=== PATIENT | male | born 1985 | race Caucasian/White ===

== ENCOUNTER → 2016-12-14 | Outpatient (CLI) | payer OTHER ==
[~2016-12-14] MED LIST: CLON1TAB3 PO; GABA-112 PO; LITH1TAB10 PO
--- NOTE | 2016-12-15 05:54 | PAP/PSG TECHNICIAN REPORT ---
[facility] Technology Project Manager Polysomnogram Report Study name: None Report date: 12/15/2016 Study date: 12/14/2016 Referring Physician: Rivka Guevara M.D. Name: DEBORAH POLLARD Interpreting Physician: Shiela Guevara M.D. Date of : 1985 Technology Project Manager: LAWANDA Lomeli. Sex: Male Age: 31 StudyType: PSG Weight: 158 lbs Height: 31 years, Height 5' 9" Neck Circum:15inches BMI: 23.33 Medications: Neurontin 300mg, [place] Carbonate ER 450mg, Zyprexa 5mg Patient History Study started on room air with no ETCO2 monitoring in room #6. 31 yr old male here tonight for a possible split psg. He has a family history of NEVILLE. He snores and has witnessed apnea. He has a history of SO insomnia. He never feels rested. He did not have a sleeping pill with him tonight but he stayed up all last night playing video games and was up all day today so that he would be able to fall asleep tonight. Neck circ=15inches. ESS=3/24. Parameters Monitored NPSG: E1-M2, E2-M1, Fp1-M2, Fp2-M1, F3-M2, F4-M2, F4-M1, C3-M2, C4-M2, C4-M1, O1-M2, O2-M2, O2-M1, T3-M2, T4-M1, P3-M2, P4-M1, CHIN1, CHIN2, HR, EKG, Legs, PFLOW, SNOR, FLOW, CFLOW, Tidal Volume, THOR, ABDO, SpO2, PLTH, CPRESS, ETCO2 Wave, ETCO2, pH Sleep Architecture Sleep Stages Time at Lights Off 10:27:41 PM STAGES Time (min.) TST (%) Time at Lights On 5:31:41 AM Wake 58.5 -- Total Recording Time (TRT) 423.50 min. N1 15.5 4 Total Sleep Period (TSP) 381.0 min. N2 219.0 60 Total Sleep Time (TST) 365.0min. N3 85.0 23 Awake Time 58.5 min. REM 45.5 12 Wake after Sleep Onset 16.0 min. Sleep Efficiency (SE) 86 % Sleep Onset Latency (NEELAM) 43.0 min. Number of Stage 1 Shifts None Awakenings 12 Stage Changes 73 Number of REM periods 8 REM 45.5 12 REM Latency 70.0 min. NREM 319.5 88 Body Position Analysis Supine Right Left Side Prone Vertical Total Sleep Time (min.) 343.9 78.0 0.0 78.00 0.0 0.0 Total Sleep Time (%) 79% 21% 0% 21 0% N/A% Total Sleep Time REM (min.) 45.5 0.0 0.0 None 0.0 0.0 Total Sleep Time NREM (min.) 241.5 78.0 0.0 None 0.0 0.0 Intermittent Wake (min.) 56.9 1.6 0.0 None 0.0 0.0 Total Sleep Period (%) 80% None None None None None Arousals Myoclonus (PLM) * Events Count Index Events Count Index Spontaneous 19 3 Events Awake (PLMW) 44 45.1 Respiratory 1 0.2 Events Asleep w/ Arousal (PLMA) 4 0.7 PLM 4 1 Events Asleep w/o Arousal (PLMS) 30 4.9 Snoring 34 6 Total Asleep 34 5.6 Total 58 10 Total 78 11 Respiratory Analysis * CA OA MA CH H RERA Total Count 0 1 0 0 1 0 2 Index 0.0 0.2 0.0 0 0.2 0 0.3 Mean Duration 0.0 17.0 0.0 0.00 11.7 0.0 14.4 Longest Duration 0.0 17.0 0.0 0.00 0.0 0.0 17.0 Respiratory Event Summary Total Supine ~Supine Right Left Prone REM NREM Apneas Count 1 1 0 0 N/A N/A 0 1 Index 0.2 0 0 0.0 N/A N/A 0 0 Hypopneas (4% Desat) Count 1 1 0 0 N/A N/A 1 0 Index 0.2 0.2 0 0.0 N/A N/A 1.3 0.0 Apneas & All Hypopneas Count 2 2 0 0 N/A N/A 1 1 Index 0.3 0 0 0 N/A N/A 1.3 0.2 Respiratory Events (Physician Practice Administrator+All Hyp+RERA) Count 2 2 0 0 N/A N/A 1 1 Index 0.3 0 0 0.0 N/A N/A 1.3 0.2 Respiratory Related Arousal Count 1 2 0 0 N/A N/A 0 1 Index 0.2 0 0 0 N/A N/A 0 0 Snoring Analysis Supine Right Left Prone REM NREM Total Snore duration 20.8 min Snores count 887 34 N/A N/A 12 909 921 Snore mean duration 1.4 Sec Snores index 185 26 N/A N/A 15.8 170.7 151.4 TST with snoring (%) 5.7% Desaturation Event Summary: Minimum %SpO2 Event Count Mean/Min/Max Duration(sec.) Desaturation Index % Time In Bed > 90 3 19.3 / 15.0 / 28.0 0.6 83.1 86 - 90 1 15.0 / 15.0 / 15.0 1.0 15.0 81 - 85 0 N/A 0.0 1.9 76 - 80 0 N/A 0.0 0.0 71 - 75 0 N/A 0.0 0.0 66 - 70 0 N/A 0.0 0.0 61 - 65 0 N/A 0.0 0.0 56 - 60 0 N/A 0.0 0.0 51 - 55 0 N/A 0.0 0.0 < 50 0 N/A 0.0 0.0 Total REM NREM Awake <50% 0.0 min. 0.0 min. 0.0 min. 0.0 min. 51 - 60% 0.0 min. 0.0 min. 0.0 min. 0.0 min. 61 - 70% 0.0 min. 0.0 min. 0.0 min. 0.0 min. 71 - 80% 0.0 min. 0.0 min. 0.0 min. 0.0 min. 81 - 90% 64.9 min. 8.0 min. 38.6 min. 18.2 min. 91 - 100% 319.0 min. 35.8 min. 246.9 min. 36.3 min. Average 92 92 92 91 Minimum SpO2 81 88 81 82 Desaturation Event Index 0.4 1.3 0.2 1.0 # Desat. Events below 89% 1 1 N/A N/A Time(%) with Saturation below 89% 5.4 0.1 4.0 1.3 Time(min.) with Saturation below 89% 20.7 0.3 15.3 5.1 Time (mins) REM (mins) NREM (mins) % of TST SpO2 Below 90% 1 1 NN/A 4.8 SpO2 Below 88% 0 0 0 4 Heart Rate Analysis Min (bpm) Max (bpm) Average (bpm) Awake 68 127 88 NREM 62 127 82 REM 59 93 77 Overall 59 127 81 Supplemental O2 Values Minimum O2 level: None Value Start Time End Time Technology Project Manager Comments Mr. Pollard slept in the right and supine positions. No cardiac arrhythmia noted. Some limb movements noted. No bruxism noted. Snoring was noted and scored as a 3 on a scale of 1 through 5. (0=no snoring, 5=snoring loud enough to be heard through a closed door or down the jose[address] way) He did not use the restroom during the night. He stated that he slept well. The final report will be interpreted and signed by a sleep physician. The completed physician report will then be placed in the patient medical record. Therapy (cm H2O) 0 TIB (min.) 423.5 TST (min.) 365.0 Sleep Onset (min.) 43.0 REM Onset From Sleep (min.) 70.0 Sleep Efficiency % 86 Wakefulness (%) 14 Wakefulness (min.) 58.5 NREM 1 (%) 4 NREM 1 (min.) 15.5 NREM 2 (%) 60 NREM 2 (min.) 219.0 NREM 3 (%) 23 NREM 3 (min.) 85.0 REM (%) 12 REM (min.) 45.5 # Arousals 58 Arousal Index 10 # Snore 921 Snore Index 151.4 AHI 0.3 AHI Supine 0 AHI Non-Supine 0 NREM AHI 0.2 REM AHI 1.3 RDI 0.3 # Obstructive Apnea 1 # Central Apnea 0 # Mixed Apnea 0 # Hypopneas 1 RERAs 0 Total Respiratory Events 2 Time Below SpO2 89% (min.) 15.6 Mean NREM SpO2 (%) 92 Mean REM SpO2 (%) 92 Mean Sleep SpO2 (%) 92 Min NREM SpO2 (%) 81 Min REM SpO2 (%) 88 Position Supine (min.) 343.9 Position Non-supine (min.) 78.0 LM Index Sleep 5.6 LM Index NREM 3.9 LM Index REM 17.1 Mean Heart Rate (bpm) 81 Min Heart Rate (bpm) 59
--- NOTE | 2016-12-21 13:30 | POLYSOMNOGRAPH REPORT ---
REFERRING PERSON: Dr. Dimas Guevara. BUS OPERATOR: Stacy Robles. Mr. Spicer is a 31-year-old male who presents for a possible split night sleep study. He has a history of snoring and witnessed apneas. He has a history of sleep onset and insomnia. He never feels rested. He states that he was not given a sleeping pill prior to tonight's test, but he stayed up all last night playing video games and was up all day today so that he would be able to fall asleep tonight. [place] sleepiness scale score on the evening of this study is 3. BMI is 23.33. Following the technical and digital specifications of the [place] [employer] (AASM) a standard diagnostic polysomnogram was performed monitoring EEG, EOG, EMG (chin and leg deviations), oxygen saturation, body position, digital video, respiratory effort and airflow. The sleep Stage and event scoring was based on the AASM Manual for the Scoring of Sleep and Associated Events 2007 edition. Apneas are defined as a drop in the peak thermal sensor excursion by >90% of baseline for at least 10 seconds. Hypopneas were scored using the 4% oxygen desaturation rule (4A-Medicare) and a decrease in the nasal pressure excursions by >30% of baseline for at least 10 seconds. Respiratory effort-related arousal (RERA's) is defined as a sequence of breaths lasting at least 10 seconds characterized by increasing respiratory effort or flattening of the nasal pressure waveform leading to an arousal from sleep when the sequence of breaths does not meet criteria for an apnea or hypopnea. Apnea Hypopnea index (AHI) is defined as the number of apneas and hypopneas occurring in an hour of sleep. Respiratory disturbance index (RDI) is defined as the number of apneas, hypopneas, and RERA's occurring in an hour of sleep. Mr. Spicer's total sleep period time was 381 minutes. Total sleep time was 365 minutes. Sleep efficiency was 86%. Latency to sleep onset was 43 minutes with wake after sleep onset of 16 minutes. Total non-REM sleep time was 319.5 minutes. He spent 4% of that time in N1 sleep, 60% in N2 sleep and 23% in N3 sleep. REM latency was 70 minutes. Total REM sleep time was 45.5 minutes or 12% of total sleep time. There were 58 cortical arousals from sleep. Twenty-four of these arousals were due to snoring, 4 were due to periodic limb movements of sleep and 1 was due to a respiratory event. The remaining 19 were spontaneous. There were 34 periodic limb movements noted. Limb movement index was 5.6 with an arousal index of 0.7. On the study, Mr. Spicer had no central, 1 obstructive, and no mixed apneas. There was only 1 hypopnea. Apnea-hypopnea index was 0.3. This is normal. 921 snoring events were recorded. Total sleep time with snoring was 5.7%. Mean saturation was 92% with desaturations to 81%. Saturations were less than 89% for 20.7 minutes of recorded time. These desaturations appeared to be artifactual and could be confirmed with NPO. There was no cardiac ectopy noted on this study. Heart rates ranged from a low of 59 beats per minute to a high of 127 beats per minute during sleep. IMPRESSION AND PLAN: Mr. Spicer is a 31-year-old male without evidence of sleep apnea, bruxism, parasomnia or clinically significant periodic limb movements of sleep on this test. 20 minutes of nocturnal hypoxemia was noted on this study; however, this all appears to be artifactual. An NPO can be performed on room air to ensure he does not in fact have nocturnal hypoxemia.
== END | disposition home or self-care (01) ==
LOC: C.NEUR 21:00
PROVIDERS: ATTEND Family Medicine
DX: G47.10 Hypersomnia, unspecified (principal); R06.81 Apnea, not elsewhere classified; R06.83 Snoring

== ENCOUNTER 2017-08-22 15:37 | Emergency (ER) | payer OTHER ==
[~2017-08-22] VITALS: Ht 177.8 cm; Wt 63.0 kg
[2017-08-22 15:58] VITALS: TEMP 37; Ht 177.8 cm; Wt 63.0 kg
[2017-08-22] MEDS ORDERED: IBUPROFEN 600 MG TAB PO STA (16:18)
--- NOTE | 2017-08-22 16:31 | EMERGENCY ROOM VISIT NOTE ---
ED Visit Note First contact with patient: 16:06 CHIEF COMPLAINT: Left Shoulder pain HISTORY OF PRESENT ILLNESS: This 32-year-old male patient presents to the emergency department, ambulatory, with a female friend, complaining of pain in the left shoulder for approximately 2-3 weeks. 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 He states he has been having intermittent pain in the left shoulder, making it difficult for him to hold anything heavy. He believed he pulled a muscle, but was talking to his father today, and states he suspects it could be a rotator cuff injury. There is mild limitation of motion of the arm because of the pain. The pain is moderate, constant and increases with motion of the hand and arm. The patient states the pain is throbbing and 7/10 at its worst. The patient has taken nothing for relief of the pain. No previous significant previous shoulder disease or injury. No numbness or tingling. No neck or back pain. No chest pain or shortness of breath. No abdominal pain or nausea/vomiting. No cough. REVIEW OF SYSTEMS: A 6 system review of systems was performed with positives and pertinent negatives in the HPI. ALLERGIES: None MEDICATIONS: None PMH: Radius, chronic joint pain SOCIAL HISTORY: Lives locally with family. He denies drug, alcohol use. The patient states he does smoke one pack of cigarettes per day. PHYSICAL EXAM: Vital Signs: Reviewed nurse's notes, vital signs stable. GENERAL : This is a 32-year-old male, in no acute distress, but appears to be in pain, well-developed, well-nourished laying his left arm in a flexed (at the elbow) and internally rotated position. MUSCULOSKELETAL: There is no deformity in the contour of the left shoulder and there are no wilbur deformities noted. There is no sulcus sign. There is tenderness over the anterior and posterior rotator cuff. The patient's range of motion is limited due to pain and spasms. Supraspinatus strength 5/5. There is no clavicle tenderness. No tenderness of the humerus, elbow, wrist, or hand. Tailings Worker strength 5/5. Radial pulse 2+. NECK: No tenderness to palpation over the cervical spine. HEART: Regular rate and rhythm without murmurs gallops or rubs. LUNGS: Clear to auscultation bilaterally without wheezes, rales or rhonchi. No accessory muscle use. No retractions. NEURO: The patient is alert and oriented to person, place, and time. Normal sensation to light and sharp touch. Capillary refill less than 2 seconds. RADIOLOGY: X-Ray Left Shoulder: L SHOULDER MIN 2 VIEWS ROUTINE HISTORY: 32 years-old Male left shoulder pain acute left shoulder pain. COMPARISON: Chest radiograph 10/11/2015 TECHNIQUE: 3 views of the left shoulder FINDINGS: No acute fracture, dislocation or significant degenerative changes. No opaque foreign body. Imaged lung huddleston and soft tissues are unremarkable. IMPRESSION: No acute bony abnormality. The above report was generated using voice recognition software. It may contain grammatical, syntax or spelling errors. Electronically signed by: Joaquin Gauthier M.D. 08/22/2017 4:36 PM Dictated Date/Time: 08/22/2017 4:35 PM EMERGENCY DEPARTMENT COURSE: I examined the patient. An X-ray of the left shoulder was reviewed by myself and radiologist and shows No acute bony abnormality. The patient was given an arm sling for comfort and a dose of 600 mg ibuprofen. Discharge instructions were reviewed and patient was discharged home in good condition. I attest that I have personally reviewed the patient's current medication list. Patient was found to have normal blood pressure on screening and does not require follow-up. DIFFERENTIAL DIAGNOSIS: Contusion, sprain, strain, fracture, dislocation, arthritis, malignancy, and others DIAGNOSIS: Shoulder strain Problem List Medical Problems: (1) Acute anxiety Status: Resolved (2) Anxiety disorder Status: Chronic (3) Arthralgia Status: Resolved (4) Back pain Status: Resolved (5) Bilateral knee pain Status: Chronic (6) Bilateral knee pain Status: Resolved (7) Bipolar affective disorder Status: Resolved (8) Bipolar disorder Status: Chronic (9) Chest pain Status: Resolved (10) Depression Status: Chronic (11) Gastroesophageal reflux disease Status: Chronic (12) Homicidal thoughts Status: Resolved (13) Hypertension Nos Status: Chronic (14) Insomnia Status: Chronic (15) Marijuana dependence Status: Chronic (16) Mood disorder Status: Resolved (17) Mood swings Status: Chronic (18) Neuropathy Status: Chronic (19) Osteochondral defect Status: Chronic (20) Palpitations Status: Resolved (21) Solitary nodule of lung Status: Chronic Current/Historical Medications Scheduled Naproxen (Naprosyn), 500 MG PO BID Scheduled PRN Cyclobenzaprine Hcl (Flexeril), 5 MG PO TID PRN for Muscle Spasms Allergies Coded Allergies: No Known Allergies (Unverified , 08/02/16) Vital Signs Date Time Temp Pulse Resp B/P (MAP) Pulse Ox O2 Delivery O2 Flow Rate FiO2 08/22/17 15:58 37.0 97 20 129/78 99 Room Air Departure Information Impression Primary Impression: Left shoulder strain Dispostion Home / Self-Care Condition GOOD Prescriptions Naproxen (Naprosyn) 500 Mg Tab 500 MG PO BID, #60 TAB Prov: Sadia Alvarez PA-C 08/22/17 Cyclobenzaprine Hcl (FLEXERIL) 5 Mg Tab 5 MG PO TID Y for Muscle Spasms, #10 TAB PRN Prov: Sadia Alvarez PA-C 08/22/17 Referrals No Doctor, Assigned (PCP) Francisco Javier Miramontes M.D. Patient Instructions ED Sp[facility] Shoulder, [facility] Additional Instructions You have been treated in the Emergency Department for Shoulder Pain. For pain control, you can use the following [id number] medicines (if >12 yo): Naproxen 500mg twice daily. Take with food. Avoid using more than 1000mg in a 24 hour period. Do not use 2400mg per day for more than three consecutive days without physician direction. Prolonged inappropriate use can lead to stomach upset or ulcers. (AND/OR) Acetaminophen(Tylenol) may be used for fever or pain. Use 1000mg every six hours as needed. Avoid using more than 3000mg in a 24 hour period. If this is a recent injury (<24 hrs), ice can be applied to the area of pain for the first 3 days to help decrease pain and inflammation. You have been provided the number for an Orthopaedic Surgeon. You should call this number as soon as possible to establish a follow-up visit from today's Emergency Department visit. Wear the shoulder sling for comfort. Return to the Emergency Department if your current symptoms worsen despite treatment course outlined above, or if you develop any of the following symptoms : intractable pain despite aforementioned treatment course or new onset of numbness or tingling of the arm. Work Instructions Return To Work: 1 day Problem Qualifiers Primary Impression: Left shoulder strain Encounter type: initial encounter Qualified Codes: S46.912A - Strain of unspecified muscle, fascia and tendon at shoulder and upper arm level, left arm , initial encounter
--- NOTE | 2017-08-22 16:38 | DIAGNOSTIC IMAGING REPORT ---
L SHOULDER MIN 2 VIEWS ROUTINE HISTORY: 32 years-old Male left shoulder pain acute left shoulder pain. COMPARISON: Chest radiograph 10/11/2015 TECHNIQUE: 3 views of the left shoulder FINDINGS: No acute fracture, dislocation or significant degenerative changes. No opaque foreign body. Imaged lung huddleston and soft tissues are unremarkable. IMPRESSION: No acute bony abnormality. The above report was generated using voice recognition software. It may contain grammatical, syntax or spelling errors. Electronically signed by: Joaquin Gauthier M.D. 08/22/2017 4:36 PM Dictated Date/Time: 08/22/2017 4:35 PM
[2017-08-22] MEDS ORDERED: CYCL5TAB PO (16:47)
[2017-08-22] MEDS ORDERED: NAPR-1169 PO (16:50)
[2017-08-22 17:00] VITALS: BP 126/78; PULSE 73; O2SAT 98
== END 2017-08-22 17:02 | disposition home or self-care (01) ==
LOC: C.EDB 15:38 → C.EDD 17:02
DX: S46.912A Strain of unspecified muscle, fascia and tendon at shoulder and upper arm level, left arm, initial encounter (principal); X58.XXXA Exposure to other specified factors, initial encounter; G89.29 Other chronic pain; F41.9 Anxiety disorder, unspecified; F31.9 Bipolar disorder, unspecified; K21.9 Gastro-esophageal reflux disease without esophagitis; I10 Essential (primary) hypertension; G47.00 Insomnia, unspecified; F12.20 Cannabis dependence, uncomplicated; G62.9 Polyneuropathy, unspecified; M95.8 Other specified acquired deformities of musculoskeletal system; R91.1 Solitary pulmonary nodule

== ENCOUNTER 2018-07-13 04:49 | Emergency (ER) | payer SELFPAY ==
[~2018-07-13] VITALS: Ht 175.3 cm; Wt 61.1 kg
[2018-07-13 04:55] VITALS: Ht 175.3 cm; Wt 61.1 kg
[2018-07-13] MEDS ORDERED: LIDOCAINE/EPINEPHRINE 1% 20 ML VIAL INFIL ONE (05:15)
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
[2018-07-13 06:42] VITALS: BP 142/87; PULSE 100; TEMP 36.9; O2SAT 97
== END 2018-07-13 06:42 | disposition home or self-care (01) ==
LOC: C.EDB 04:49
DX: S51.812A Laceration without foreign body of left forearm, initial encounter (principal); W25.XXXA Contact with sharp glass, initial encounter; F17.200 Nicotine dependence, unspecified, uncomplicated; F12.90 Cannabis use, unspecified, uncomplicated

== ENCOUNTER 2019-07-29 21:27 | Inpatient (IN) ==
[2019-07-29] MEDS ORDERED: cefTRIAXone SODIUM 1,000 MG/50 ML BAG IV STA (22:53)
[2019-07-29 23:25] LABS: Basophils # (auto) 0.03 K/uL (0-0.2); Basophils % (auto) 0.3 %; Eosinophils # (auto) 0.07 K/uL (0-0.5); Eosinophils % (auto) 0.8 %; Hematocrit (blood only) 43.7 % (42-52); Immature Granulocytes # (auto) 0.01 K/uL (0.00-0.02); Immature Granulocytes % (auto) 0.1 %; Lymphocytes # (auto) 1.65 K/uL (1.2-3.4); Lymphocytes % (auto) 18.1 %; Mean Corpuscular Hgb Conc 36.6 g/dL (32-36); Mean Platelet Volume 10.9 fL (7.4-10.4); Monocytes # (auto) 0.58 K/uL (0.11-0.59); Monocytes % (auto) 6.3 %; Neutrophils % (auto) 74.4 %; Platelet Count 151 K/uL (130-400); RDW Coefficient of Variation 13.1 % (11.5-14.5); RDW Standard Deviation 44.1 fL (36.4-46.3); Red Blood Count 4.75 M/uL (4.7-6.1); White Blood Count 9.14 K/uL (4.8-10.8)
[2019-07-29] MEDS ORDERED: ACETAMINOPHEN 500 MG TAB PO STA (23:29)
[2019-07-29 23:43] LABS: BUN Creatinine Ratio 14.2 (10-20); Calcium 8.8 mg/dl (8.5-10.1); Creatinine Clr Calc Pharmacy 121.6 ml/min; Est GFR (African American) 138.2; Est GFR (Non-African American) 119.2; Potassium 3.5 mmol/L (3.5-5.1)
[2019-07-29 23:45] LABS: Albumin Globulin Ratio 1.1 (0.9-2); Bilirubin,Total 0.5 mg/dl (0.2-1); Globulin 3.5 gm/dl (2.5-4.0); Total Protein 7.5 gm/dl (6.4-8.2)
--- NOTE | 2019-07-30 04:50 | History and Physical Report ---
DATE OF ADMISSION: 07/29/2019 CHIEF COMPLAINT: Right leg infection. HISTORY OF PRESENT ILLNESS: A 34-year-old male with past medical history significant for bipolar disorder, depression, anxiety, ADHD. He says he was in the hospital multiple times as a child and was on many medications but did not work for him and he started smoking because that used to help with his anxiety and he is also using medical marijuana and the combination that takes care of all his anxiety and other psych issues. He is not taking any other medications. 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 He was treated for possible anaplasmosis in April and he came to the ER on July 27 because he noticed right inguinal lymph node which was tender, it started on last Sunday, came to the ER on Sunday and lab work was unremarkable. Imaging studies were done. There was no DVT with lymphangitis and ER physician prescribed Keflex and follows his PCP. If he does not improve with antibiotics, advised the may need a biopsy, but after going home, the next day, he noticed redness in his right calf and progressively started getting worse and has significant pain, and also from the calf there is a redline streak going up to his right groin region. The lymph node size decreased with his Keflex, but because of the new calf erythema and his pain in the calf, he came to the ER. He said he is also having sweating and fever at home. Denies any IV drug abuse. Denies any other problems, no headaches, no blurred vision, no sore throat. He has some cough, but smokes cigarettes half pack to 2 packs a day for many years. No chest pain, no shortness of breath, no nausea, no vomiting, no abdominal pain. Normal bowel and bladder movements. No hematuria, no dysuria, no melena or hematochezia. No swelling in the legs. Currently resting comfortably and hemodynamically stable. The patient was somewhat agitated, initially as he was in the ER for 5 hours and he says he wanted to smoke, he just the room went out of the hospital, smoked cigarettes and came back and after that he was pleasant.Has two cats at home but denies any cat scratching. ALLERGIES: NSAIDS. PAST MEDICAL HISTORY: As mentioned above. PAST SURGICAL HISTORY: Dental surgery, tonsillectomy. MEDICATIONS: Currently, none. FAMILY HISTORY: There is a history of cancer in the family. SOCIAL HISTORY: Lives with his girlfriend, smokes half pack to 2 packs for many years. Denies any alcohol use. Smokes marijuana. REVIEW OF SYMPTOMS: As per HPI. Rest of review of symptoms is negative. PHYSICAL EXAMINATION: GENERAL: The patient is of moderate build, not in acute distress. VITAL SIGNS: Temperature 37.5, pulse 84, respirations 16, blood pressure 124/66, oxygen 98% room air. HEENT: No pallor, no icterus. Pupils equal, round, reactive to light. NECK: No JVD, no neck masses, no carotid bruit. CARDIOVASCULAR: S1, S2 heard, regular rate and rhythm, no murmur, no gallop. RESPIRATORY SYSTEM: Normal AP diameter. No accessory muscle use. No wheezing, no crackles. ABDOMEN: Soft, bowel sounds present, nontender. No distention. CENTRAL NERVOUS SYSTEM: Cranial nerves II-XII grossly nonfocal. EXTREMITIES: Erythematic changes of his right calf and centrally some open skin and also steak of redness going from the calf region in the medial side of his leg into the groin.tender enlarged inguinal lymph node of right side. Ly LABORATORY DATA: WBC 9, hemoglobin 16, hematocrit 43.7, platelets 151. Sodium 137, potassium 3.5, chloride 102, bicarb 26, BUN 11, creatinine 0.7, serum glucose 98, lactate 0.7, calcium 8.8, total bilirubin 0.5, AST 20, ALT 27, alkaline phosphatase of 63. ASSESSMENT AND PLAN: This is a 34-year-old male who presents with right lower extremity infection, possible cellulitis. 1. Right lower extremity infection, erythematous changes to the calf and streak of redline going to the groin and tender lymphadenopathy in the groins, possible insect bite. The patient has 2 cats, but denies any cat scratch. Keflex improved his lymphadenopathy, but then calf erythema developed. We will empirically put him on vancomycin and Zosyn. Blood cultures were drawn in the ER which we will follow. We will also get a consult ID for further recommendations. 2. History of anxiety, bipolar, not taking any medications, only smokes cigarettes and also medical marijuana. 3. Deep venous thrombosis prophylaxis. We will place him on Lovenox. 4. Disposition: Admit to medical floor. Expect to discharge home and follow with his family doctor. Level 1 full code. MTDD
[2019-07-30] MEDS ORDERED: [UNRECOGNIZED DRUG - OTHER] PO SCH (04:57)
[2019-07-30] MEDS ORDERED: MoRPHine SULFATE 4 MG/ML 1 ML CARP\\VIAL IV PRN (04:57)
[2019-07-30] MEDS ORDERED: ONDANSETRON INJ 2 MG/ML 2 ML VIAL IV PRN (04:57)
[2019-07-30] MEDS ORDERED: VANCOMYCIN CONSULT ACTIVE PRN (04:57)
[2019-07-30] MEDS ORDERED: ACETAMINOPHEN 325 MG TAB PO PRN (04:57)
[2019-07-30] MEDS ORDERED: PIPERACILL/TAZOBAC CONSULT ACTIVE PRN (04:57)
--- NOTE | 2019-07-30 05:44 | Emergency Department Note ---
History of Present Illness General Chief complaint: Infection Stated complaint: SPIDER BITE Source: patient Mode of arrival: ambulatory Limitations: no limitations History of Present Illness Maximum Pain Intensity: 5 This patient is a 34-year-old male who presents to the emergency department complaining of an infection of his right leg. The patient states that he was seen here 2 days ago due to right-sided groin pain/swelling. He was discharged on Keflex. He states that he took a nap right after discharge and when he woke up he felt a burning sensation in the back of his right leg. He noticed some redness in that area. He states that since then, the red area has become very dark and painful. He has been taking Benadryl without improvement. He has been taking his Keflex as prescribed. He rates his overall discomfort a 5/10. He has been having fevers. He denies any nausea or vomiting. Home Medications Home Medications Medication Instructions Recorded Confirmed Type Medical Marijuanas 1 applic PO UD 07/27/19 07/29/19 History cephalexin [Keflex] 500 mg PO Q6H #56 cap 07/27/19 07/29/19 Rx Allergies Allergy/AdvReac Type Severity Reaction Status Date / Time NSAIDS (Non-Steroidal AdvReac Unknown Ulcers Verified 07/29/19 23:53 Anti-Inflamma Past Med/Surg History Medical History Mood disorder (Resolved) Bilateral knee pain (Resolved) Chest pain (Resolved) Arthralgia (Resolved) Back pain (Resolved) Bipolar affective disorder (Resolved) Palpitations (Resolved) Acute anxiety (Resolved) Social History Preferred Language: Mohawk Communication Ability: Effective Battery Filler Required: No Beliefs That Will Affect Care: None Current Living Situation: Significant Other Current Living Situation Comment: apartment Other Information That Helps Us Care for You: Yes (has child visitation this weekend) Feels Safe at Home: Yes Safety Concerns: Feels Safe At This Time Smoking Status: Current every day smoker Tobacco Type: cigarettes ; Do You Dip or Chew Tobacco: No ; Second Hand Exposure: No ; Tobacco Cessation Education Requested by Patient: No Hx Alcohol Use: Yes Alcohol type: beer Hx Substance Use: No Review of Systems A total of 10 systems reviewed and were otherwise negative Physical Exam Vital Signs Vital Signs - 24 hr 07/29/19 21:40 07/29/19 23:34 07/30/19 00:28 Temperature 38.6 C H 37.4 C 37.4 C Temperature Source Oral Oral Oral Sepsis Recent Fever Within 48 Hours Yes Sepsis Action Taken by Nursing No Action Required Pulse Rate 74 Pulse Rate [Right Finger] 93 H Respiratory Rate 18 16 Respiratory Effort / Characteristics Non-Labored Spontaneous Non-Labored Spontaneous Respiratory Depth Normal Normal Respiratory Pattern Regular Regular Blood Pressure 143/97 H Blood Pressure [Right Arm] 135/80 Blood Pressure Mean 112 Blood Pressure Mean [Right Arm] 98 Blood Pressure Position Lying Blood Pressure Position [Right Arm] Pulse Oximetry 100 97 Oxygen Delivery Method Room Air Room Air 07/30/19 01:41 Temperature 37.5 C Temperature Source Oral Sepsis Recent Fever Within 48 Hours Sepsis Action Taken by Nursing Pulse Rate Pulse Rate [Right Finger] 84 Respiratory Rate 16 Respiratory Effort / Characteristics Non-Labored Spontaneous Respiratory Depth Normal Respiratory Pattern Regular Blood Pressure Blood Pressure [Right Arm] 124/66 Blood Pressure Mean Blood Pressure Mean [Right Arm] 85 Blood Pressure Position Blood Pressure Position [Right Arm] Lying Pulse Oximetry 98 Oxygen Delivery Method Room Air VITALS: Vitals are noted on the nurse's note and reviewed by myself. Vital signs stable. GENERAL: This is a 34-year-old male, in no acute distress, nondiaphoretic, well- developed well-nourished. SKIN: There is an area of dark erythema to the posterior aspect of the right calf. There is lymphangitic streaking up the posterior and medial leg. There is right inguinal adenopathy with overlying erythema. EARS: External auditory canals clear, tympanic membranes pearly eddy without erythema or effusion bilaterally. EYES: Pupils equal round and reactive to light and accommodation. MOUTH: Mucous membranes moist. Tonsils are not enlarged. Pharynx without erythema or exudate. NECK: Supple without nuchal rigidity. HEART: Regular rate and rhythm without murmurs gallops or rubs. LUNGS: Clear to auscultation bilaterally without wheezes, rales or rhonchi. ABDOMEN: Soft, nontender to palpation. Right inguinal adenopathy. EXTREMITIES: No peripheral edema. NEURO: Patient was alert and oriented to person place and time. Course Consultations Consultation #1: Dr. Juan Mina hospitalist Administered Medications Discontinued Medications Acetaminophen (Tylenol) 1,000 mg PO NOW STA Stop: 07/29/19 23:30 Last Admin: 07/29/19 23:37 Dose: 1,000 mg Documented by: [id number] Ceftriaxone Sodium (Rocephin) 1,000 mg in 50 mls @ 100 mls/hr IV NOW STA Stop: 07/29/19 23:22 Last Infusion: 07/30/19 00:10 Dose: 0 mls/hr Documented by: [id number] Admin: 07/29/19 23:29 Dose: 100 mls/hr Documented by: [id number] Medical Decision Making Differential Diagnosis Differential diagnosis includes cellulitis, abscess, DVT, superficial thrombosis, contact dermatitis, among others. Home Medications Current Medication List: was personally reviewed by me Laboratory Data Attestation: I reviewed the patient's lab results. Result diagrams: 07/29/19 23:17 07/29/19 23:17 Lab Results 07/29/19 07/29/19 07/29/19 Range/Units 23:17 23:17 23:17 WBC 9.14 (4.8-10.8) K/uL RBC 4.75 (4.7-6.1) M/uL Hgb 16.0 (14.0-18.0) g/dL Hct 43.7 (42-52) % MCV 92.0 (80-100) fL MCH 33.7 (25-34) pg MCHC 36.6 H (32-36) g/dL RDW Std Deviation 44.1 (36.4-46.3) fL RDW Coeff of Danny 13.1 (11.5-14.5) % Plt Count 151 (130-400) K/uL MPV 10.9 H (7.4-10.4) fL Immature Gran % (Auto) 0.1 % Neut % (Auto) 74.4 % Lymph % (Auto) 18.1 % Stark % (Auto) 6.3 % Eos % (Auto) 0.8 % Baso % (Auto) 0.3 % Immature Gran # (Auto) 0.01 (0.00-0.02) K/uL Neut # (Auto) 6.80 H (1.4-6.5) K/uL Lymph # (Auto) 1.65 (1.2-3.4) K/uL Stark # (Auto) 0.58 (0.11-0.59) K/uL Eos # (Auto) 0.07 (0-0.5) K/uL Baso # (Auto) 0.03 (0-0.2) K/uL Sodium 137 (136-145) mmol/L Potassium 3.5 (3.5-5.1) mmol/L Chloride 102 (98-107) mmol/L Carbon Dioxide 26 (21-32) mmol/L Anion Gap 9.0 (3-11) BUN 11 (7-18) mg/dl Creatinine 0.77 (0.6-1.4) mg/dl Est Cr Clr Drug Dosing 121.6 ml/min Est GFR ( Amer) 138.2 Est GFR (Non-Af Amer) 119.2 BUN/Creatinine Ratio 14.2 (10-20) Glucose 98 (70-99) mg/dl Lactate 0.7 (0.4-2.0) mmol/L Calcium 8.8 (8.5-10.1) mg/dl Total Bilirubin 0.5 (0.2-1) mg/dl AST 20 (15-37) U/L ALT 27 (12-78) U/L Alkaline Phosphatase 63 (45-117) U/L Total Protein 7.5 (6.4-8.2) gm/dl Albumin 4.0 (3.4-5.0) gm/dl Globulin 3.5 (2.5-4.0) gm/dl Albumin/Globulin Ratio 1.1 (0.9-2) Blood Pressure Blood Pressure Findings: Elevated blood pressure Blood Pressure Disposition: further management by hospitalist MDM Narrative The patient is a 34-year-old male who presents today complaining of worsening infection of the right leg. Patient was seen here 2 days ago and had work-up for right inguinal adenopathy. At that time, he did not have any rash but has not developed what appears to be cellulitis of the posterior right leg. Patient has associated lymphangitis and lymphadenitis. He is febrile here but does not appear to be septic. Labs revealed no leukocytosis, anemia or concerning electrolyte abnormality. Lactic acid was not elevated. Blood cultures pending. Patient had a DVT study performed at his last visit which was negative. Patient was given a dose of Rocephin in the emergency department. Case was discussed with the [facility] hospitalist, who will evaluate the patient for further evaluation and care. Impression & Plan Cellulitis of leg, right Discharge Plan Visit Data *Final* Discharge Date/Time: 07/30/19 03:42 Chief Complaint: Infection Stated Complaint: SPIDER BITE ED Provider: Mike Carmona ED Midlevel Provider: Abby Trujillo Discharge Problem: Cellulitis of leg, right Patient Disposition: Admitted As Inpatient Discharge Instructions Interventions: ED Discharge Assessment Last Done: 07/30/19 03:42
[2019-07-30] MEDS ORDERED: VANCOMYCIN HCL 1,500 MG in SODIUM CHLORIDE 0.9% 500 ML IV ONE (06:15)
[2019-07-30] MEDS ORDERED: PIPERACILLIN/TAZOBACTAM 3.375 GM in DEXTROSE 5% 100 ML IV ONE (06:15)
[2019-07-30] MEDS ORDERED: Nursing to Pharmacy Communication ONE (06:47)
[2019-07-30] MEDS: ENOXAPARIN INJ 40 MG/0.4 ML SYR SQ SCH (07:52)
--- NOTE | 2019-07-30 09:07 | Pharmacy Report ---
Pharmacy Abx Dose Short Note - Date of Service July 30, 2019 - Assessment & Plan A/p Pt failed out pt Keflex. Is being started on vanco/zosyn for SST. Vanco 1500mg (24mg/kg) x1 then Vanco 1000mg ( 15mg/kg) q8 Trough ordered for 07/31 @1330, reflective of Css Will target a trough of 15-20mcg/mL until we have C/s's Zosyn EI Zosyn 3.375g IV q8 appropriate for clinical status and renal fxn Pharmacy will continue to follow and will adjust dose/frequency as necessary. Thank you.
--- NOTE | 2019-07-30 10:39 | Hospitalist Progress Note ---
Date of Service July 30, 2019 Subjective admitted patient on 07/30/19. Results & Data Vital Signs (Past 12 Hours) Vital Signs Temp Pulse Resp BP Pulse Ox 07/30/19 07:22 36.7 C 68 16 116/69 98 07/30/19 03:55 36.7 C 72 20 124/81 99 07/30/19 03:47 84 16 132/77 97 07/30/19 01:41 37.5 C 84 16 124/66 98 07/30/19 00:28 37.4 C 07/29/19 23:34 37.4 C 93 H 16 135/80 97
--- NOTE | 2019-07-30 10:54 | Infectious Disease Consult ---
Date of Consultation July 30, 2019 Assessment & Plan (1) Cellulitis of leg, right: continue abx, check bartonella and lyme. follow cultures. History of Present Illness Attending Physician: Estephania Manrique DO pt admitted with increased rle redness, pain. Was initially seen in ER on 07/27 for swollen lymph node with pain. was treated with keflex and d/c home. Initially felt better but on Sunday noted right posterior calf became red and warm. Came back to ER, admitted and placed on zosyn and vanco. wbc 9, ESR 12. Tmax in ER 38.6, currenlty afebrile. Doppler and ultrasouns on 07/27 negative. states he believes he was bit by a spider. no known bites, trauma to area. states he is feeling better. cultures 07/27 and 07/29 negative. CXR negative. procalcitonin negative. has 2 cats at home but denies bites or scratches. creat 0.7. no pain currently, denies drainage. Allergies Allergy/AdvReac Type Severity Reaction Status Date / Time NSAIDS (Non-Steroidal AdvReac Unknown Ulcers Verified 07/29/19 23:53 Anti-Inflamma Home Medications Home Medications Medication Instructions Recorded Confirmed Type Medical Marijuanas 1 applic PO UD 07/27/19 07/29/19 History cephalexin [Keflex] 500 mg PO Q6H #56 cap 07/27/19 07/29/19 Rx Patient History Medical History Mood disorder (Resolved) Bilateral knee pain (Resolved) Chest pain (Resolved) Arthralgia (Resolved) Back pain (Resolved) Bipolar affective disorder (Resolved) Palpitations (Resolved) Acute anxiety (Resolved) Social History Preferred Language: Mauritanian Communication Ability: Effective Commercial Insulator Required: No Beliefs That Will Affect Care: None Current Living Situation: Significant Other Current Living Situation Comment: apartment Other Information That Helps Us Care for You: Yes (has child visitation this weekend) Feels Safe at Home: Yes Safety Concerns: Feels Safe At This Time Smoking Status: Current every day smoker Tobacco Type: cigarettes ; Do You Dip or Chew Tobacco: No ; Second Hand Exposure: No ; Tobacco Cessation Education Requested by Patient: No Hx Alcohol Use: Yes Alcohol type: beer Hx Substance Use: No Review of Systems Review of Systems: All systems reviewed & are unremarkable except as noted in HPI & below Physical Exam Constitutional: WD/WN, vitals as above Eyes: PERRL, conjunctivae normal, anicteric sclerae ENMT: external ear and nose normal, oropharynx normal Neck: normal visual inspection Respiratory: normal respiratory effort, lungs clear to auscultation Cardiovascular: RRR, no murmur, no edema Gastrointestinal (Abdomen): normal bowel sounds, soft, nontender, no hepatosplenomegaly Musculoskeletal: no cyanosis or clubbing, extremities motor strength 5/5 Skin: no rashes, warm and dry right post calf with circular erythema, no warmth, non tender, no drainage right inguinal node - non tender. streaking noted. Psychiatric: A+Ox3, euthymic affect Results & Data Vital Signs (Past 12 Hours) Vital Signs Temp Pulse Resp BP Pulse Ox 07/30/19 07:22 36.7 C 68 16 116/69 98 07/30/19 03:55 36.7 C 72 20 124/81 99 07/30/19 03:47 84 16 132/77 97 07/30/19 01:41 37.5 C 84 16 124/66 98 07/30/19 00:28 37.4 C 07/29/19 23:34 37.4 C 93 H 16 135/80 97 PG Care Time/CCT Total # of Minutes Spent Total Time Spent with Patient: Total time spent is greater than 50% in coordination of care (as documented) at patient's floor/unit and/or counseling patient:
[2019-07-30] MEDS: PIPERACILLIN/TAZOBACTAM 3.375 GM in DEXTROSE 5% 100 ML IV SCH ×2 (12:02→20:14)
--- NOTE | 2019-07-30 12:06 | Hospitalist Progress Note ---
Date of Service July 30, 2019 Assessment & Plan (1) Cellulitis of leg, right: Cint Vanc/Zosyn pending clinical improvement after failure with Keflex. No sepsis. (2) Inguinal adenopathy: secondary to RLE cellulitis. Poss STI, however, no rash present, denies painful urination. Improved. (3) Bipolar 1 disorder: (4) DVT prophylaxis: Lovenox Full Code Dispo-to home in the next 1-2 days pending clinical improvement, negative blood cultures and transition to PO antibiotics. Estephania Manrique DO [facility] Hospitalist. Subjective 34 yo M presented with worsening redness and swelling in R calf area. Had previously presented to ER with acute R inguinal lymphadenopathy that was painful. He reports a couple of days later noting the R calf area. He is not any worse on IV abx overnight, but doesn't report feeling that much better yet. Denies fevers and chills but does report feeling very poorly three days ago including significant drenching sweats. Denies trauma to the leg. Feel he was bitten by a spider. Convinced it was a brown recluse. Review of Systems Review of Systems: All systems reviewed & are unremarkable except as noted in HPI & below Physical Exam Physical Exam: CONSTITUTIONAL: WNWD, vitals as above, generally well- appearing EYES: EOMI bilaterally, PERRL, normal conjunctivae ENT: MMM RESPIRATORY: clear to auscultation bilaterally, no crackles, rales or wheezes, normal respiratory effort CARDIOVASCULAR: regular rate and rhythm, S1 and 2 heard without murmurs, gallops or rubs, no JVD, no peripheral edema, no carotid bruits GASTROINTESTINAL: normal bowel sounds, soft, nontender, nondistended MUSCULOSKELETAL: strength 5/5 throughout, head is normocephalic and atraumatic SKIN: warm and dry, multiple tattoos. RLE erythematous area that is round and appears to have a central wound. There is no fluctuance and minimal pain to wound. Leg is NVI with no sensation loss. There is some erythema in the upper thigh area. and persistent but improved right inguinal LAD. No TTP of lymph node. NEUROLOGIC: CN 2-12 grossly intact, no gross focal deficits. PSYCHIATRIC: alert cooperative and oriented to person, place and time. Results & Data Vital Signs (Past 12 Hours) Vital Signs Temp Pulse Resp BP Pulse Ox 07/30/19 07:22 36.7 C 68 16 116/69 98 07/30/19 03:55 36.7 C 72 20 124/81 99 07/30/19 03:47 84 16 132/77 97 07/30/19 01:41 37.5 C 84 16 124/66 98 07/30/19 00:28 37.4 C Laboratory Results Short CBC 07/29/19 Range/Units 23:17 WBC 9.14 (4.8-10.8) K/uL Hgb 16.0 (14.0-18.0) g/dL Hct 43.7 (42-52) % Plt Count 151 (130-400) K/uL BMP 07/29/19 23:17 Sodium 137 Potassium 3.5 Chloride 102 Carbon Dioxide 26 BUN 11 Creatinine 0.77 Glucose 98 Calcium 8.8 Liver Function 07/29/19 Range/Units 23:17 Total Bilirubin 0.5 (0.2-1) mg/dl AST 20 (15-37) U/L ALT 27 (12-78) U/L Alkaline Phosphatase 63 (45-117) U/L Albumin 4.0 (3.4-5.0) gm/dl Medications Administered Current Inpatient Medications Acetaminophen (Tylenol) 650 mg PO Q4H PRN PRN Reason: pain/fever Stop: 08/29/19 04:56 Enoxaparin Sodium (Lovenox) 40 mg SQ Q24H [facility] Stop: 08/29/19 07:59 Last Admin: 07/30/19 07:52 Dose: 40 mg Documented by: Piperacillin Sod/Tazobactam (Sod 3.375 gm/ Dextrose) 115 mls @ 28.75 mls/hr IV Q8H [facility]; Protocol Stop: 08/09/19 11:59 Last Admin: 07/30/19 12:02 Dose: 28.8 mls/hr Documented by: Vancomycin HCl 1,000 mg/ (Sodium Chloride) 270 mls @ 125 mls/hr IV Q8H [facility] Stop: 08/09/19 13:59 Miscellaneous Information (Consult) 1 ea N/A UD PRN PRN Reason: Consult Stop: 08/29/19 04:56 Miscellaneous Information (Consult) 1 ea N/A UD PRN PRN Reason: Consult Stop: 08/29/19 04:56 Morphine Sulfate (Morphine Sulfate) 3 mg IV Q3H PRN PRN Reason: Pain Stop: 08/13/19 04:56 Ondansetron HCl (Zofran) 4 mg IV Q6H PRN PRN Reason: Nausea Stop: 08/29/19 04:56
[2019-07-30] MEDS: VANCOMYCIN HCL 1,000 MG in SODIUM CHLORIDE 0.9% 250 ML IV SCH ×2 (14:09→22:00)
[2019-07-31] MEDS: PIPERACILLIN/TAZOBACTAM 3.375 GM in DEXTROSE 5% 100 ML IV SCH (04:35)
[2019-07-31 05:36] LABS: Basophils # (auto) 0.06 K/uL (0-0.2); Basophils % (auto) 0.9 %; Eosinophils # (auto) 0.24 K/uL (0-0.5); Eosinophils % (auto) 3.5 %; Hematocrit (blood only) 43.5 % (42-52); Hemoglobin 15.5 g/dL (14.0-18.0); Immature Granulocytes # (auto) 0.01 K/uL (0.00-0.02); Immature Granulocytes % (auto) 0.1 %; Lymphocytes # (auto) 2.84 K/uL (1.2-3.4); Lymphocytes % (auto) 41.2 %; Mean Corpuscular Hgb Conc 35.6 g/dL (32-36); Mean Corpuscular Volume 93.3 fL (80-100); Mean Platelet Volume 11.3 fL (7.4-10.4); Monocytes # (auto) 0.66 K/uL (0.11-0.59); Monocytes % (auto) 9.6 %; Neutrophils # (auto) 3.08 K/uL (1.4-6.5); Neutrophils % (auto) 44.7 %; Platelet Count 188 K/uL (130-400); RDW Coefficient of Variation 13.4 % (11.5-14.5); RDW Standard Deviation 45.9 fL (36.4-46.3); Red Blood Count 4.66 M/uL (4.7-6.1); White Blood Count 6.89 K/uL (4.8-10.8)
[2019-07-31] MEDS: VANCOMYCIN HCL 1,000 MG in SODIUM CHLORIDE 0.9% 250 ML IV SCH (05:54)
[2019-07-31 06:00] LABS: BUN Creatinine Ratio 12.7 (10-20); Calcium 8.8 mg/dl (8.5-10.1); Creatinine Clr Calc Pharmacy 131.3 ml/min; Est GFR (African American) 142.1; Est GFR (Non-African American) 122.6; Magnesium 2.3 mg/dl (1.8-2.4); Potassium 3.9 mmol/L (3.5-5.1)
[2019-07-31] MEDS: ENOXAPARIN INJ 40 MG/0.4 ML SYR SQ SCH (07:52)
--- NOTE | 2019-07-31 12:08 | Discharge Summary ---
Date of Service July 31, 2019 Admission HPI Per Admitting Provider HISTORY OF PRESENT ILLNESS: A 34-year-old male with past medical history significant for bipolar disorder, depression, anxiety, ADHD. He says he was in the hospital multiple times as a child and was on many medications but did not work for him and he started smoking because that used to help with his anxiety and he is also using medical marijuana and the combination that takes care of all his anxiety and other psych issues. He is not taking any other medications. 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 He was treated for possible anaplasmosis in April and he came to the ER on July 27 because he noticed right inguinal lymph node which was tender, it started on last Sunday, came to the ER on Sunday and lab work was unremarkable. Imaging studies were done. There was no DVT with lymphangitis and ER physician prescribed Keflex and follows his PCP. If he does not improve with antibiotics, advised the may need a biopsy, but after going home, the next day, he noticed redness in his right calf and progressively started getting worse and has significant pain, and also from the calf there is a redline streak going up to his right groin region. The lymph node size decreased with his Keflex, but because of the new calf erythema and his pain in the calf, he came to the ER. He said he is also having sweating and fever at home. Denies any IV drug abuse. Denies any other problems, no headaches, no blurred vision, no sore throat. He has some cough, but smokes cigarettes half pack to 2 packs a day for many years. No chest pain, no shortness of breath, no nausea, no vomiting, no abdominal pain. Normal bowel and bladder movements. No hematuria, no dysuria, no melena or hematochezia. No swelling in the legs. Currently resting comfortably and hemodynamically stable. The patient was somewhat agitated, initially as he was in the ER for 5 hours and he says he wanted to smoke, he just the room went out of the hospital, smoked cigarettes and came back and after that he was pleasant.Has two cats at home but denies any cat scratching. Admission Exam Per Admitting Provider PHYSICAL EXAMINATION: GENERAL: The patient is of moderate build, not in acute distress. VITAL SIGNS: Temperature 37.5, pulse 84, respirations 16, blood pressure 124/66, oxygen 98% room air. HEENT: No pallor, no icterus. Pupils equal, round, reactive to light. NECK: No JVD, no neck masses, no carotid bruit. CARDIOVASCULAR: S1, S2 heard, regular rate and rhythm, no murmur, no gallop. RESPIRATORY SYSTEM: Normal AP diameter. No accessory muscle use. No wheezing, no crackles. ABDOMEN: Soft, bowel sounds present, nontender. No distention. CENTRAL NERVOUS SYSTEM: Cranial nerves II-XII grossly nonfocal. EXTREMITIES: Erythematic changes of his right calf and centrally some open skin and also steak of redness going from the calf region in the medial side of his leg into the groin.tender enlarged inguinal lymph node of right side. Ly Principal Diagnosis Right leg cellulitis with associated right inguinal lymphadenopathy Tobacco use Discharge Data Allergies Allergy/AdvReac Type Severity Reaction Status Date / Time NSAIDS (Non-Steroidal AdvReac Unknown Ulcers Verified 07/29/19 23:53 Anti-Inflamma Consultations 07/30/19 00:18 ED Decision to Admit Stat 07/30/19 04:57 Consult Infectious Diseases Routine Hospital Course (1) Cellulitis of leg, right: (2) Inguinal adenopathy: (3) Bipolar 1 disorder: 34-year-old bipolar man was seen in the ER for emergence of a right lower extremity infection with associated right inguinal lymphadenopathy. He had been taking Keflex, which was given to him during a previous ER visit several days previously at which time no wound was seen but inguinal lymphadenopathy was present. He was admitted to the Hospitalist service and started on vancomycin and Zosyn. He was not septic, and denied trauma to the leg. He is a smoker and left the floor multiple times to smoke cigarettes while admitted. He reportedly utilizes medical marijuana which she did not use during his hospitalization. Infectious disease was consulted. He continued to do well clinically with improved and almost resolution of erythema in the right upper thigh and an improvement of the erythema in the right lower extremity wound as hospit alization progressed. He remained hemodynamically stable and afebrile during this entire time. Blood cultures returned negative and he was doing well at time of discharge. Final blood cultures were pending at time of discharge. At time of discharge a krxi-[id number] examination was performed revealing almost complete resolution of the pinkish area in the right upper thigh with almost complete resolution of the right inguinal lymphadenopathy to palpation with minimal tenderness. Additionally the circular right lower extremity wound sitting over the right gastrocnemius was greatly improved but still erythematous with no evidence of drainage. There was no evidence of red streaks up the leg any further. His right lower extremity was neurovascularly intact. He was mentating and ambulating at baseline and tolerating p.o. He was discharged in stable condition on 10 days of clindamycin oral therapy with close follow-up arranged with [facility] in [facility] as he has no health insurance. Bartonella and Lyme serologies were pending at the time of discharge. Total Time Total Time Spent Total Time Spent (In Minutes): 60 Total Time Includes: Examination of the Patient, Discharge Planning, Medication Reconciliation, Communication With Other Providers and Other ([facility] follow-up arranged. ) Discharge Plan Discharge Items Patient Disposition: Home - Self-Care Reason For Visit: RIGHT LEG INFECTION Discharge Diagnosis: Right leg cellulitis with associated right inguinal lymphadenopathy Tobacco use Condition on Discharge: Good Activity: Resume your previous activity Non-emergency contact: Primary Care Provider Call non-emergency contact if: you have any medication questions, your symptoms worsen, your pain is not controlled, your pain is worsening, your pain is unusual for you, your pain is concerning for you and you have a fever Follow-up/Referrals: PCP,NO [Primary Care Provider] - Diet: Regular Addtl Attending Provider Instructions: Please take the antibiotic as instructed and complete the full course. If you develop diarrhea, abdominal pain, or have other concerns, please seek immediate medical attention You have a follow-up appointment at the local free clinic to evaluate your infection site and ensure there is appropriate healing with the antibiotics given to you at discharge. [facility] 08/11/19 @ 1000 Please bring a photo ID, pay stub, last year's taxes and copy of your medication list when you arrive at [facility] clinic. It is strongly recommended that you stop smoking as this can have deleterious effects on your health. It was a pleasure taking care of you! Please call if you have any questions or problems. You can reach a [facility] hospitalist on duty at [facility] 24 hours a day by calling [phone]. Take care of yourself. Estephania Manrique, DO [facility] Hospitalist Pending Studies at Discharge: Yes Stand-Alone Forms: My [facility] Medications and DC Order Prescriptions: New clindamycin HCl 300 mg capsule 300 mg PO TID 10 Days Qty: 30 RF: 0 Continued Medical Marijuanas 1 applic PO UD RF: 0 Discontinued cephalexin [Keflex] 500 mg capsule 500 mg PO Q6H Qty: 56 RF: 0 Discharge Orders: Discharge Order (Routine); Ordered 07/31/19 Ordered By: Estephania Manrique Admission Data Admit Date/Time: 07/30/19 03:15 Attending Provider: Estephania Manrique Admit Provider: Thiago Martinez Primary Care Provider: PCP,NO Other Providers: Thiago Martinez ; Deng Eden
[2019-07-31] MEDS ORDERED: VANCOMYCIN TROUGH ONE (13:30)
[2019-08-01 15:21] LABS: Bartonella henselae IgG Negative; Bartonella henselae IgM Ab Negative; Bartonella quintana IgG Ab Negative; Bartonella quintana IgM Ab Negative
[2019-08-06 03:34] LABS: 18KDIGG Band NONREACTIVE (NONREACTIVE); 23KDIGG Band NONREACTIVE (NONREACTIVE); 23KDIGM Band REACTIVE (NONREACTIVE); 28KDIGG Band REACTIVE (NONREACTIVE); 30KDIGG Band NONREACTIVE (NONREACTIVE); 39KDIGG Band NONREACTIVE (NONREACTIVE); 39KDIGM Band NONREACTIVE (NONREACTIVE); 41KDIGG Band NONREACTIVE (NONREACTIVE); 41KDIGM Band NONREACTIVE (NONREACTIVE); 45KDIGG Band NONREACTIVE (NONREACTIVE); 58KDIGG Band NONREACTIVE (NONREACTIVE); 66KDIGG Band NONREACTIVE (NONREACTIVE); 93KDIGG Band NONREACTIVE (NONREACTIVE); Lyme Antibodies, WB IgG NEGATIVE (NEGATIVE); Lyme Antibodies, WB IgM NEGATIVE (NEGATIVE)
== END 2019-07-31 13:20 | disposition home or self-care (01) | DRG 603 ==
LOC: ED 21:27 → 4W 07-30 03:15